=== PATIENT | female | born 1990 ===

== ENCOUNTER 2017-01-22 14:15 | Inpatient (IN) ==
[2017-01-22] MEDS ORDERED: traZODone 50 MG TABLET PO PRN (14:30)
[2017-01-22] MEDS ORDERED: Haloperidol Lactate 5 MG/ML VIAL IM PRN (14:30)
[2017-01-22] MEDS ORDERED: *HR* LORazepam 2 MG/ML VIAL IM PRN (14:30)
[2017-01-22] MEDS ORDERED: hydrOXYzine pamoate 25 MG CAPSULE PO PRN (14:30)
[2017-01-22] MEDS ORDERED: Acetaminophen 325 MG TABLET PO PRN (14:30)
[2017-01-22] MEDS ORDERED: *HR* LORazepam 1 MG TABLET PO PRN (14:30)
[2017-01-23] MEDS ORDERED: ETHINYL ESTRADIOL PO SCH (09:00)
[2017-01-23] MEDS ORDERED: LEVONORGESTREL PO SCH (09:00)
--- NOTE | 2017-01-23 10:44 | Psychiatry History & Physical ---
Date of Encounter: 01/24/17 Time of Encounter: 10:00 History of Present Illness Patient Stated Chief Complaint: Suicidal ideation and attempts Medicare Admission Attestation: For traditional Medicare patients the provided hospital inpatient services are reasonable and necessary and in the case of services not specified as inpatient -only under 42 CFR 419.22 (n), that they are appropriately provided as inpatient services in accordance 42 CFR 412.3. For Critical Access Hospital the patient may reasonably be expected to be discharged or transferred to a hospital within 96 hours after admission to the Critical Access Hospital. Admitted From: Hospital to Hospital Transfer ([facility]) History of Present Illness: Ms. Velazquez is a 26 year old female admitted as a transfer from [facility] in [facility] for depression and suicide attempts by overdosing on her medication. Patient has long history of psychiatric treatment since age 12 with multiple hospitalization and she carried several diagnoses including major depression, eating disorder, OCD in addition to substance abuse and alcohol abuse. Patient also had a history of self-mutilation. She reports increasing depression, no specific stressors and she is vague and guarded. She stopped taking her medication for the past 2 weeks and then overdose on them. She endorses feeling of hopelessness and hypersomnia and lack of motivation. She smoked marijuana daily and drinking alcohol once or twice a week. On admission her alcohol level was 198 and tox screen was positive for marijuana. Past Med Surg Social Fam HX - Past Medical History Medical history: no medical history - Past Psychiatric History Psychiatric history: Reports: anxiety, depression, prior suicide attempt, previous psychiatric hospitalization Past psychiatric history details: Multiple psychiatric hospitalization since age 12 most recent was 2 years ago for suicide attempts by overdose. History of self-mutilation and cutting, and eating disorder. Family psychiatric history: Yes Family Psychiatric History Details: Father depression Family History of Suicide: Unknown - Past Surgical History Surgical History: breast surgery - Social History Smoking Status: Current every day smoker Smokeless Tobacco Status: No Alcohol use: recent Drug use: marijuana - Family History Father Adopted: [place]: [place] Family Member Ethnicity: Non- Living Status: Still Living Hx Family Cardiac Disorders: No Hx Family Respiratory Disorders: No Hx Family Cancer: No Hx Family GI Disorders: No Hx Family Genitourinary Disorders: No Hx Family Endocrine Disorder: No Hx Family Musculoskeletal Disorders: No Hx Family Neuromuscular Disorders: No Hx Family Neurologic Disorders: No Hx Family HEENT Disorders: No Hx Family Autoimmune Disorders: No Hx Family Reproductive Disorders: No Hx Family Psychosocial Disorders: Yes (SAD) Hx Family Medical Disorders: No Mother Adopted: [place]: Y[place]it[place] Family Member Ethnicity: Non- Living Status: Still Living Hx Family Cardiac Disorders: No Hx Family Respiratory Disorders: No Hx Family Cancer: No Hx Family GI Disorders: No Hx Family Genitourinary Disorders: No Hx Family Endocrine Disorder: No Hx Family Musculoskeletal Disorders: No Hx Family Neuromuscular Disorders: No Hx Family Neurologic Disorders: No Hx Family HEENT Disorders: No Hx Family Autoimmune Disorders: No Hx Family Reproductive Disorders: No Hx Family Psychosocial Disorders: No Hx Family Medical Disorders: No Medications & Allergies Brexpiprazole [Rexulti] 2 mg PO DAILY 01/23/17 [History] Buspirone HCl [Buspar] 5 mg PO TID 01/23/17 [History] FLUoxetine HCl [Prozac] 40 mg PO DAILY 01/23/17 [History] Levonorgestrel-Ethin Estradiol [Lessina-28 Tablet] 1 each PO DAILY 01/23/17 [ History] 3 Allergy/AdvReac Type Severity Reaction Status Date / Time ciprofloxacin [From Cipro] Allergy Hives Verified 01/23/17 09:36 Review of Systems Psychiatric: Reports: depression, anxiety, abnormal sleep pattern, suicidal ideation, hopelessness Mental Status Exam Patient orientation: Yes Person, Yes Time, Yes Place Level of alertness: Alert Patient appearance: Disheveled, Inappropriate, Bizarre, Thin Behavior: calm, cooperative, nervous, guarded, fearful, withdrawn Psychomotor activity: Slowed Eye contact: Minimal Contact Mood description: Depressed, Anxious Affect description: congruent with mood, constricted, dysphoric, anxious Speech pattern: Normal rate, Normal rhythm, Normal tone Speech volume: Normal Thought process: Linear, Goal Oriented Thought content: Yes Suicidal ideation, No Homicidal ideation, No Overt delusions Perceptual disturbances: No Auditory hallucinations, No Visual hallucinations Attention span: Capable of Focused Attention Memory description: Grossly Intact Patient reliability: Reliable Historian Intelligence estimate: Average Judgment: Limited Insight: Partial Results - Vital Signs Vital signs: Temp Pulse Resp BP 97.6 F 61 16 90/59 01/23/17 09:00 01/23/17 09:00 01/23/17 09:00 01/23/17 09:00 Assessment and Plan (1) Recurrent major depression-severe Current visit: Yes Status: Acute Plan: Admit inpatient for safety and stabilization, Close observation, Suicide Precautions per unit protocol, Encourage participation in unit milieu, Group Therapy, Monitor sleep, Monitor appetite Additional Plan: Start fluoxetine 40 mg daily, and adds Wellbutrin XL 150 mg daily. Benefits and side effects were discussed patient is agreeable to start and will continue to monitor. Referral to the eating disorder treatment program will be to attempt. Risks, benefits, side effects, alternatives discussed w/pt: Yes Patient agreeable to treatment: Yes Qualifiers: Psychotic features: with psychotic features Qualified Code(s): F33.3 - Major depressive disorder, recurrent, severe with psychotic symptoms (2) Bulimia nervosa Current visit: Yes Status: Acute Plan: Admit inpatient for safety and stabilization, Close observation, Suicide Precautions per unit protocol, Encourage participation in unit milieu, Group Therapy, Monitor sleep, Monitor appetite Risks, benefits, side effects, alternatives discussed w/pt: Yes Patient agreeable to treatment: Yes (3) Alcohol dependence Current visit: Yes Status: Acute Plan: Admit inpatient for safety and stabilization, Close observation, Suicide Precautions per unit protocol, Encourage participation in unit milieu, Group Therapy, Monitor sleep, Monitor appetite Risks, benefits, side effects, alternatives discussed w/pt: Yes Patient agreeable to treatment: Yes Qualifiers: Qualified Code(s): F10.20 - Alcohol dependence, uncomplicated
[2017-01-23] MEDS: LEVONORGESTREL ETHIN ESTRADIOL PO SCH (11:00)
[2017-01-23] MEDS: FLUoxetine 20 MG CAPSULE PO SCH (11:15)
[2017-01-23] MEDS: BuPROPion XL (24 HR) 150 MG TABLET PO SCH (11:15)
[2017-01-24] MEDS: LEVONORGESTREL ETHIN ESTRADIOL PO SCH (08:17)
[2017-01-24] MEDS: FLUoxetine 20 MG CAPSULE PO SCH (08:17)
[2017-01-24] MEDS: BuPROPion XL (24 HR) 150 MG TABLET PO SCH (08:18)
--- NOTE | 2017-01-24 09:53 | Psychiatry Progress Note ---
Date of Encounter: 01/24/17 Time of Encounter: 09:30 Subjective Interval history: Patient is seen for follow-up, Vianney reports she is less seclusive to her room, participating in some groups. She tolerated new medication Wellbutrin and reports less sleep and feel less hungry. She is more interactive and not labile. 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 She denies suicidal ideation. She signed in voluntarily. She was encouraged to define goals after the hospital. Review of Systems Psychiatric: Reports: depression, anxiety, abnormal sleep pattern Objective: Exam Patient orientation: Yes Person, Yes Time, Yes Place Level of alertness: Alert Patient appearance: Appropriate, Well Groomed Behavior: calm, cooperative Psychomotor activity: Normal Eye contact: Maintains Eye Contact Mood description: Euthymic/stable, Anxious Affect description: congruent with mood, constricted Speech pattern: Normal rate, Normal rhythm, Normal tone Speech volume: Normal Thought process: Linear, Goal Oriented Thought content: No Suicidal ideation, No Homicidal ideation, No Overt delusions Perceptual disturbances: No Auditory hallucinations, No Visual hallucinations Judgment: Fair Insight: Partial Results - Vital Signs Vital Signs: Temp Pulse Resp BP 97.6 F 79 16 107/77 01/24/17 09:00 01/24/17 09:00 01/24/17 09:00 01/24/17 09:00 Assessment and Plan (1) Recurrent major depression-severe Current visit: Yes Status: Acute Plan: Continue hospitalization, Close observation, Suicide Precautions per unit protocol, Encourage participation in unit milieu, Group Therapy, Monitor sleep, Monitor appetite Risks, benefits, side effects, alternatives discussed w/pt: Yes Patient agreeable to treatment: Yes Qualifiers: Psychotic features: with psychotic features Qualified Code(s): F33.3 - Major depressive disorder, recurrent, severe with psychotic symptoms (2) Bulimia nervosa Current visit: Yes Status: Acute Plan: Continue hospitalization, Close observation, Suicide Precautions per unit protocol, Encourage participation in unit milieu, Group Therapy, Monitor sleep, Monitor appetite Risks, benefits, side effects, alternatives discussed w/pt: Yes Patient agreeable to treatment: Yes (3) Alcohol dependence Current visit: Yes Status: Acute Plan: Continue hospitalization, Close observation, Suicide Precautions per unit protocol, Encourage participation in unit milieu, Group Therapy, Monitor sleep, Monitor appetite Risks, benefits, side effects, alternatives discussed w/pt: Yes Patient agreeable to treatment: Yes Qualifiers: Qualified Code(s): F10.20 - Alcohol dependence, uncomplicated Consult Discharge Plan - Plan Referrals: [facility] Radha JUAREZ [Outside]
[2017-01-25] MEDS: LEVONORGESTREL ETHIN ESTRADIOL PO SCH (08:59)
[2017-01-25] MEDS: FLUoxetine 20 MG CAPSULE PO SCH (08:59)
[2017-01-25] MEDS: BuPROPion XL (24 HR) 150 MG TABLET PO SCH (08:59)
--- NOTE | 2017-01-25 13:33 | Psychiatry Progress Note ---
Date of Encounter: 01/25/17 Time of Encounter: 13:15 Subjective Interval history: Patient seen for follow-up. Staff reports she is less seclusive and attended some groups. She interacts with staff and peers appropriately. She reported improved energy level and is not taking naps during the day. Morbid is important denied feeling depressed, denied any suicidal thoughts. Denies any side effects from medication. She is motivated for activities after discharge. Review of Systems Psychiatric: Reports: depression, anxiety, abnormal sleep pattern Objective: Exam Patient orientation: Yes Person, Yes Time, Yes Place Level of alertness: Alert Patient appearance: Appropriate, Well Groomed Behavior: calm, cooperative Psychomotor activity: Normal Eye contact: Maintains Eye Contact Mood description: Euthymic/stable Affect description: congruent with mood, euthymic Speech pattern: Normal rate, Normal rhythm, Normal tone Speech volume: Normal Thought process: Linear, Goal Oriented Thought content: No Suicidal ideation, No Homicidal ideation, No Overt delusions Perceptual disturbances: No Auditory hallucinations, No Visual hallucinations Judgment: Fair Insight: Partial Results - Vital Signs Vital Signs: Temp Pulse Resp BP 98.2 F 78 16 100/67 01/25/17 08:45 01/25/17 08:45 01/25/17 08:45 01/25/17 08:45 Assessment and Plan (1) Recurrent major depression-severe Current visit: Yes Status: Acute Plan: Continue hospitalization, Close observation, Suicide Precautions per unit protocol, Encourage participation in unit milieu, Group Therapy, Monitor sleep, Monitor appetite Risks, benefits, side effects, alternatives discussed w/pt: Yes Patient agreeable to treatment: Yes Qualifiers: Psychotic features: without psychotic features Qualified Code(s): F33.2 - Major depressive disorder, recurrent severe without psychotic features (2) Bulimia nervosa Current visit: Yes Status: Acute Plan: Continue hospitalization, Close observation, Suicide Precautions per unit protocol, Encourage participation in unit milieu, Group Therapy, Monitor sleep, Monitor appetite Risks, benefits, side effects, alternatives discussed w/pt: Yes Patient agreeable to treatment: Yes (3) Alcohol dependence Current visit: Yes Status: Acute Plan: Continue hospitalization, Close observation, Suicide Precautions per unit protocol, Encourage participation in unit milieu, Group Therapy, Monitor sleep, Monitor appetite Risks, benefits, side effects, alternatives discussed w/pt: Yes Patient agreeable to treatment: Yes Qualifiers: Qualified Code(s): F10.20 - Alcohol dependence, uncomplicated Consult Discharge Plan - Plan Referrals: [facility] [Outside] (You will see Jennie Lares CNP, for outpatient psychiatric assessment and medication management services on 2016 at 9:00 AM. )
[2017-01-26] MEDS: BuPROPion XL (24 HR) 150 MG TABLET PO SCH (08:26)
[2017-01-26] MEDS: FLUoxetine 20 MG CAPSULE PO SCH (08:26)
[2017-01-26] MEDS: LEVONORGESTREL ETHIN ESTRADIOL PO SCH (08:26)
[2017-01-26 09:05] VITALS: BP 107/71
--- NOTE | 2017-01-26 10:38 | Discharge Summary ---
Date of Encounter: 01/26/17 Time of Encounter: 10:31 Diagnosis - Discharge Diagnosis (1) Recurrent major depression-severe Status: Acute Qualifiers: Psychotic features: without psychotic features Qualified Code(s): F33.2 - Major depressive disorder, recurrent severe without psychotic features (2) Bulimia nervosa Status: Acute (3) Alcohol dependence Status: Acute Qualifiers: Qualified Code(s): F10.20 - Alcohol dependence, uncomplicated Medications - Discharge Medications Prescriptions: BuPROPion XL (24 HR) [Wellbutrin Xl] 150 mg PO DAILY #30 FLUoxetine HCl [Prozac] 40 mg PO DAILY #30 Levonorgestrel-Ethin Estradiol [Lessina-28 Tablet] 1 each PO DAILY 01/23/17 [ History] BuPROPion XL (24 HR) [Wellbutrin Xl] 150 mg PO DAILY #30 01/26/17 [Rx] FLUoxetine HCl [Prozac] 40 mg PO DAILY #30 01/26/17 [Rx] 3 Allergy/AdvReac Type Severity Reaction Status Date / Time ciprofloxacin [From Cipro] Allergy Hives Verified 01/23/17 09:36 Provider Date of admission: 01/22/17 14:15 Primary care physician: PCP NONE Discharging clinician: Nakul Evans Assessment and Plan - Patient/Caregiver Discharge Instructions Activity: resume usual activities as tolerated Diet: regular diet - Follow up Plan Follow up with: [facility] [Outside] - 01/29/17 1:00 pm (The above appointment is with [facility] mental health window caser. Suzette will see you at your home. You will see Jennie Lares CNP, for outpatient psychiatric assessment and medication management services on 02/22/2017 at 9:00 AM. ) Functional capacity at discharge: independent ambulation Overall status at discharge: Stable Disposition: Home, Self-Care Hospital Course Hospital course: Ms. Velazquez is a 26 year old female admitted for depression and suicidal ideation and suicide attempt by overdose on medication. For details of admission please see H&P On the urine patient medication were reviewed she was restarted on fluoxetine 40 mg, we added Wellbutrin XL and 50 mg daily and discontinued BuSpar and rexalti. Patient responded well to medication changes she reported increased energy and less fatigue or sleep her mood improved she participated in some groups and activities she was more interactive she denies suicidal ideation and she was medically stable. On discharge patient was future oriented and denies suicidal ideation tolerated the medication without any side effects and will forward to goals of going back to school and enjoying Photography. Discharge plan and follow-up appointments were completed by social work. - Time Spent with Patient Total time spent providing and/or coordinating discharge services: Greater than 30 minutes Quality - Multiple Antipsychotics Patient discharged on 2 or more antipsychotic medications: No Procedures - Procedures Procedures: Medication Management, Crisis Stabilization, Supportive Therapy, Group Therapy, Psychoeducational Therapy Mental Status Exam - Mental Status Exam Patient orientation: Yes Person, Yes Time, Yes Place Level of alertness: Alert Patient appearance: Appropriate, Well Groomed Behavior: calm, cooperative Psychomotor activity: Normal Eye contact: Maintains Eye Contact Mood description: Euthymic/stable Affect description: congruent with mood, full range Speech pattern: Normal rate, Normal rhythm, Normal tone Speech Volume: Normal Thought process: Linear, Goal Oriented Thought Content: No Suicidal ideation, No Homicidal ideation, No Overt delusions Perceptual Disturbances: No Auditory hallucinations, No Visual hallucinations Judgment: Limited Insight: Partial
== END 2017-01-26 12:55 | disposition home or self-care (01) | DRG 751 ==
LOC: 1ANU 14:15
PROVIDERS: ADMIT Psychiatry & Neurology Psychiatry; ATTEND Psychiatry & Neurology Psychiatry